=== PATIENT | female | born 1990 | race Caucasian/White ===

== ENCOUNTER 2019-05-04 09:13 | Emergency (ER) | payer OTHER ==
[~2019-05-04] VITALS: Ht 160 cm; Wt 105.7 kg
== END 2019-05-04 11:03 | disposition home or self-care (01) ==
LOC: ER 09:13
DX: S33.5XXA Sprain of ligaments of lumbar spine, initial encounter (principal); M54.5 Low back pain; X50.0XXA Overexertion from strenuous movement or load, initial encounter; Y93.89 Activity, other specified; Y92.89 Other specified places as the place of occurrence of the external cause; Y99.8 Other external cause status